=== PATIENT | male | born 1965 | race African-American/Black ===

== ENCOUNTER 2019-04-13 13:14 | Emergency (ER) | payer SELFPAY ==
[~2019-04-13] VITALS: Ht 190.5 cm; Wt 136.4 kg
[2019-04-13] MEDS ORDERED: PROZ10 PO (14:17)
[2019-04-13] MEDS ORDERED: HYDR50CA9 PO (14:17)
[2019-04-13] MEDS ORDERED: HYDR-3110 PO (14:17)
[2019-04-13] MEDS ORDERED: RISP2TAB76 PO (14:17)
[2019-04-13] MEDS ORDERED: LURA80 PO (14:17)
[2019-04-13 16:00] VITALS: BP 138/87
== END 2019-04-13 16:35 | disposition home or self-care (01) ==
LOC: EDBD 13:15 → EMS 13:15
DX: F25.9 Schizoaffective disorder, unspecified (principal)